=== PATIENT | female | born 1985 | race Caucasian/White ===

== ENCOUNTER 2023-08-07 09:35 | Emergency (ER) | payer MEDICAID ==
[~2023-08-07] VITALS: Ht 170.2 cm; Wt 76.1 kg
[2023-08-07 10:26] LABS: Basophils # (auto) 0 10 ^3/uL (0-0.2); Basophils % (auto) 0.4 % (0.0-2.0); Eosinophils # (auto) 0.2 10 ^3/uL (0-0.8); Eosinophils % (auto) 2.2 % (0.0-7.0); Hematocrit 42.5 % (36.0-46.0); Hemoglobin 14.5 g/dL (12.2-16.2); Lymphocytes # (auto) 1.7 10 ^3/uL (0.4-5.4); Lymphocytes % (auto) 24.5 % (10.0-50.0); Mean Corpuscular Hemoglobin 29.3 pg (28.0-32.0); Mean Corpuscular Hgb Conc. 34.1 g/dL (32.0-36.0); Mean Corpuscular Volume 85.7 fL (80.0-100.0); Monocytes # (auto) 0.5 10 ^3/uL (0-1.3); Monocytes % (auto) 7.6 % (0.0-12.0); Neutrophils # (auto) 4.5 10 ^3/uL (1.6-8.6); Neutrophils % (auto) 65.3 % (37.0-80.0); Nucleated Red Blood Cells % 0.1 %; Red Blood Cells 4.96 10^6/uL (4.0-5.20); Red Cell Distribution Width 13.3 % (11.8-14.3); White Blood Cell 6.9 10^3/uL (4.4-10.8)
[2023-08-07 10:35] LABS: Urine Bacteria FEW /hpf (None Seen); Urine Blood TRACE /uL (Negative); Urine Clarity HAZY (Clear); Urine Color Yellow (Yellow); Urine Mucus FEW (None Seen); Urine Protein, UAD TRACE (Negative); Urine Specific Gravity 1.028 (1.001-1.035); Urine Urobilinogen Normal (Negative); Urine WBC 7 /hpf (0 - 5); Urine pH 5.5 (5.0-8.0)
[2023-08-07 10:41] LABS: Alanine Aminotransferase 21 U/L (7-40); Albumin 4.8 g/dL (3.2-4.8); Alkaline Phosphatase 41 U/L (46-116); Anion Gap 8 (5-15); Aspartate Aminotransferase 15 U/L (13-40); BUN/Creatinine Ratio 9.9 (10.0-20.0); Blood Urea Nitrogen 10 mg/dL (9-23); Carbon Dioxide 25 mmol/L (20-30); Chloride 106 mmol/L (98-107); Glucose 93 mg/dL (74-106); Lipase 49 U/L (12-53); Potassium 3.4 mmol/L (3.5-5.1); Sodium 139 mmol/L (136-145)
[2023-08-07 10:42] LABS: Bilirubin, Total 0.8 mg/dL (0.2-1.0); Total Protein 7.7 g/dL (5.7-8.2)
[2023-08-07] MEDS ORDERED: NITR-87 PO (11:49)
[2023-08-07] MEDS: POTASSIUM EFFERVESENT TAB 25 MEQ PO ONE (13:08)
[2023-08-07 13:11] VITALS: PULSE 66; RESP 16; O2SAT 97
[2023-08-07 13:14] VITALS: BP 150/97; PULSE 66; RESP 18; TEMP 98.5; O2SAT 97
== END 2023-08-07 13:15 | disposition home or self-care (01) ==
LOC: ER 09:35
DX: N39.0 Urinary tract infection, site not specified (principal); Z90.710 Acquired absence of both cervix and uterus
CPT/HCPCS: 36415; 80053; 81001; 83690; 85025

== ENCOUNTER 2024-06-27 15:05 | Emergency (ER) | payer BC, MEDICAID ==
[~2024-06-27] VITALS: Ht 157.5 cm; Wt 73.0 kg
[~2024-06-27 15:05] MED LIST: NITR-87 PO
[2024-06-27] MEDS ORDERED: HYDROcodone-ACET 5/325MG TAB PO ONE (16:00)
[2024-06-27 16:24] VITALS: BP 121/88; PULSE 85; RESP 16; O2SAT 97
[2024-06-27] MEDS: HYDROcodone-ACET 5/325MG TAB PO ONE (16:40)
--- NOTE | 2024-06-27 16:40 | DVH ---
XY R SHOULDER 2+ VIEW XRAY INDICATION: shoulder pain TECHNICAL DATA: 3 views were obtained of the right shoulder. COMPARISON: None FINDINGS: Comminuted, displaced right humeral head fracture. The glenohumeral joint is normally maintained. The acromioclavicular joint appears normal. The humeral head is not high riding. Adjacent soft tissues a re within normal limits. IMPRESSION: Comminuted, displaced right humeral head fracture.
[2024-06-27] MEDS ORDERED: HYDR-4902 PO (17:01)
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
== END 2024-06-27 19:51 | disposition home or self-care (01) ==
LOC: ER 15:05
DX: S42.291A Other displaced fracture of upper end of right humerus, initial encounter for closed fracture (principal); Z90.710 Acquired absence of both cervix and uterus; V89.2XXA Person injured in unspecified motor-vehicle accident, traffic, initial encounter; Y93.55 Activity, bike riding; Y92.89 Other specified places as the place of occurrence of the external cause; Y99.8 Other external cause status
CPT/HCPCS: 29105; 73030